=== PATIENT | male | born 1985 | race Caucasian/White ===

== ENCOUNTER 2017-04-01 17:32 | Emergency (ER) | payer OTHER ==
[~2017-04-01] VITALS: Ht 180.3 cm; Wt 72.0 kg
[2017-04-01 17:35] VITALS: TEMP 36.8; Ht 180.3 cm; Wt 72.0 kg
--- NOTE | 2017-04-01 18:52 | DIAGNOSTIC IMAGING REPORT ---
THORACIC SPINE 3 VIEWS ROUTINE HISTORY: Pain left shoulder/upper back pain COMPARISON: None. FINDINGS: There is no fracture. No subluxation. Disc spaces are preserved. IMPRESSION: No fracture or subluxation within the thoracic spine. The above report was generated using voice recognition software. It may contain grammatical, syntax or spelling errors. Electronically signed by: Yoni Damico M.D. 04/01/2017 6:51 PM Dictated Date/Time: 04/01/2017 6:51 PM
--- NOTE | 2017-04-01 18:53 | DIAGNOSTIC IMAGING REPORT ---
LEFT SHOULDER MIN 2 VIEWS ROUTINE CLINICAL HISTORY: left shoulder pain, no injury pain COMPARISON: None. DISCUSSION: The bones and joint spaces appear intact. There is no evidence of fracture, dislocation or bony disease. There is no evidence for soft tissue swelling. IMPRESSION: Negative study. The above report was generated using voice recognition software. It may contain grammatical, syntax or spelling errors. Electronically signed by: Yoni Damico M.D. 04/01/2017 6:52 PM Dictated Date/Time: 04/01/2017 6:52 PM
[2017-04-01] MEDS ORDERED: HYDROCODONE/ACETAMOPHEN 5/325MG TAB PO STA (19:13)
[2017-04-01] MEDS ORDERED: HYDR-5688 PO (20:14)
--- NOTE | 2017-04-01 20:14 | EMERGENCY ROOM VISIT NOTE ---
History First contact with patient: 17:57 Chief Complaint: SHOULDER PAIN Stated Complaint: PAIN IN LEFT SHOULDER,PAIN IN NECK,NUMBNESS History of Present Illness The patient is a 31 year old male who presents to the Emergency Room with complaints of left-sided shoulder and neck pain. The patient states that for the past 3 months, he has had ongoing pain in the left shoulder. The pain radiates up into his neck and down into his arm. 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 He reports pain has been worse over the past few days. Rates the discomfort a 9/10. He has been taking ibuprofen and Tylenol for the pain without relief. He states that the pain occasionally causes numbness that goes into his head. He denies any numbness or weakness of the arm. He denies any trauma to the neck or shoulder. He denies any history of shoulder problems. Review of Systems A complete 10 point review of systems was reviewed with the patient with pertinent positives and negatives as per history of present illness. All else were negative. Current/Historical Medications Scheduled PRN Hydrocodone/Acetaminophen 5MG/325MG ([place] 5MG/325MG), 1-2 TABLET PO Q4H PRN for Pain Allergies Coded Allergies: Codeine (Unverified Adverse Reaction, Intermediate, HIVES, 04/01/17) Physical Exam Vital Signs Date Time Temp Pulse Resp B/P (MAP) Pulse Ox O2 Delivery O2 Flow Rate FiO2 04/01/17 20:35 75 18 128/71 99 04/01/17 17:35 36.8 71 18 136/81 99 Room Air Physical Exam VITALS: Vitals are noted on the nurse's note and reviewed by myself. Vital signs stable. GENERAL: This is a 31-year-old male, in no acute distress, nondiaphoretic, well- developed well-nourished. HEENT: Normocephalic. PERRLA. EOMI. Mucous membranes moist. Neck is supple without nuchal rigidity. No tenderness of the cervical spinous processes. HEART: Regular rate and rhythm without murmurs gallops or rubs. LUNGS: Clear to auscultation bilaterally without wheezes, rales or rhonchi. MUSCULOSKELETAL: There is diffuse tenderness to palpation of the left thoracic paraspinous muscles into the left shoulder. Full range of motion of the left shoulder. Strength of bilateral upper extremities 5/5. NEURO: Patient was alert and oriented to person place and time. Normal sensation to light and sharp touch. Medical Decision & Procedures ER Provider Diagnostic Interpretation: LEFT SHOULDER MIN 2 VIEWS ROUTINE DISCUSSION: The bones and joint spaces appear intact. There is no evidence of fracture, dislocation or bony disease. There is no evidence for soft tissue swelling. IMPRESSION: Negative study. THORACIC SPINE 3 VIEWS ROUTINE FINDINGS: There is no fracture. No subluxation. Disc spaces are preserved. IMPRESSION: No fracture or subluxation within the thoracic spine. Medications Administered Medications (Trade) Dose Ordered Sig/Anika Route Start Time Stop Time Status Last Admin Dose Admin Acetaminophen/ Hydrocodone Bitart ([place] 5/325 Tab) 1 tab NOW STAT PO 04/01/17 19:13 04/01/17 19:14 DC 04/01/17 19:22 1 TAB Medical Decision Differential diagnosis includes herniated disc, thoracic muscle spasm, rotator cuff tendinitis, muscle strain, among others. The patient was evaluated as above. Exam is unremarkable. Normal strength and neurological findings. X-rays of the thoracic spine and left shoulder were obtained and read by radiology with no acute findings. The patient's physical exam is most consistent with a thoracic muscle spasm. He was given 1 tablet [place] and the emergency department and a small prescription. He was encouraged to follow-up with his primary care provider for further evaluation and treatment. He was instructed to return here for any numbness/weakness of the arm or other new/concerning symptoms. The patient verbalized understanding of my assessment and treatment plan and was discharged home in good condition. Blood pressure screening: Patient was found to have normal blood pressure on screening and does not require follow-up. Medication reconciliation: I attest that I have personally reviewed the patient 's current medication list. [place] Drug Monitoring [place] Search Results: patient reviewed within database, no issues identified Impression Primary Impression: Spasm of thoracic back muscle Departure Information Dispostion Home / Self-Care Condition GOOD Prescriptions Hydrocodone/Acetaminophen 5MG/325MG ([place] 5MG/325MG) Tab 1-2 TABLET PO Q4H Y for Pain, #12 TAB For Initial Treatment Prov: Tatyana Salmeron .BLANK 04/01/17 Referrals Vidya Smalls,C.R.N.P. (PCP) Patient Instructions My [facility] Additional Instructions You have been treated in the Emergency Department for Shoulder Pain. You have received pain medicine in the emergency department which impairs your ability to operate a vehicle. It is illegal for you to drive after receiving these medicines. You have been prescribed [place] to be used for pain control. This is a narcotic medication. You cannot drive or consume alcohol while on this medicine. This medicine should only be used for pain that cannot be controlled with over-the- counter pain medicines. For pain control, you can use the following [id number] medicines (if >12 yo): - Regular strength (325mg/tab) Tylenol (acetaminophen) 2 tabs every 4-6 hours as needed. Do not exceed 12 tablets in a 24 hour period. Avoid taking more than 4 grams (4000 mg) of Tylenol per day. This includes any other sources of acetaminophen you may take on a regular basis. - Regular strength (200 mg/tab) Advil (ibuprofen) 1-2 tabs every 4-6 hours as needed. Do not exceed a dose of 3200 mg per day. If this is a recent injury (<24 hrs), ice can be applied to the area of pain for the first 3 days to help decrease pain and inflammation. Follow-up with your primary care provider as scheduled. Return to the Emergency Department if your current symptoms worsen despite treatment course outlined above, or if you develop any of the following symptoms : intractable pain despite aforementioned treatment course or new onset of numbness or tingling of the arm.
[2017-04-01 20:35] VITALS: BP 128/71; PULSE 75; O2SAT 99
== END 2017-04-01 20:38 | disposition home or self-care (01) ==
LOC: C.EDB 17:38 → C.EDD 20:38
DX: M62.830 Muscle spasm of back (principal)

== ENCOUNTER 2017-04-15 08:01 | Emergency (ER) | payer OTHER ==
[~2017-04-15] VITALS: Ht 177.8 cm; Wt 64.4 kg
[~2017-04-15 08:01] MED LIST: HYDR-5688 PO
[2017-04-15 08:11] VITALS: TEMP 37.2; Ht 177.8 cm; Wt 64.4 kg
[2017-04-15] MEDS ORDERED: MoRPHine SULFATE 4 MG/ML 1 ML CARP\\VIAL IV STA (08:29)
[2017-04-15] MEDS ORDERED: SODIUM CHLORIDE 0.9% 1000ML 1,000 ML IV STA (08:29)
--- NOTE | 2017-04-15 08:37 | EMERGENCY ROOM VISIT NOTE ---
History First contact with patient: 08:14 Chief Complaint: NECK PAIN Stated Complaint: NECK PAIN, [place] X 2 DAYS, FEVER, DIZZY History of Present Illness The patient is a 32 year old male who presents to the Emergency Room with complaints of neck pain, headache and fever. The patient was seen here earlier this month with pain in the left shoulder. The patient states that he followed up with his family doctor and was prescribed naproxen and Flexeril. He is scheduled for physical therapy and to see a chiropractor. He developed neck pain and a severe headache yesterday. The patient stated he was having difficulty at work because his head and neck hurt so severely. He states that anytime he bent over he saw white spots. The patient states the pain is in the posterior neck and into the musculature of the left shoulder. He states that he woke up in the middle the night last night and was covered in sweat. He took his temperature and it was found to be 99.7F. He took 2 Tylenol and was able to go back to sleep. He states that this morning he has developed nausea and vomiting, the severe headache which she rates a 6/10 persists. Review of Systems A 10 system review of systems was completed with positives and pertinent negatives listed in the HPI. Past Medical/Surgical History Patient denies Social History Smoking Status: Current Every Day Smoker Marital Status: single Housing Status: lives with family Current/Historical Medications Scheduled Prednisone (Prednisone), 0 PO DAILY Scheduled PRN Oxycodone Ir (Roxicodone Ir), 1-2 TAB PO Q4H PRN for Pain Physical Exam Vital Signs Date Time Temp Pulse Resp B/P (MAP) Pulse Ox O2 Delivery O2 Flow Rate FiO2 04/15/17 10:29 71 16 123/69 98 Room Air 04/15/17 09:41 73 16 116/75 99 Room Air 04/15/17 08:11 37.2 85 18 126/93 98 Room Air Physical Exam VITALS: Vitals are noted on the nurse's note and reviewed by myself. Vital signs stable. The patient is afebrile. GENERAL: This is a 32-year-old male, in no acute distress, nondiaphoretic, well- developed well-nourished. SKIN: The skin was without rashes, erythema, edema, or bruising. There is no tenting of the skin. Capillary reflex less than 2 seconds. HEAD: Normocephalic atraumatic. EARS: External auditory canals clear, tympanic membranes pearly marroquin without erythema or effusion bilaterally. EYES: Pupils equal round and reactive to light and accommodation. Conjunctivae without injection, sclerae without icterus. Extraocular movements intact. NOSE: Patent, turbinates without inflammation or discharge. MOUTH: Mucous membranes moist. Tonsils are not enlarged. Pharynx without erythema or exudate. Uvula midline. Airway patent. Tongue does not deviate. NECK: The patient has pain with flexion, extension and rotation of the neck. He complains of pain primarily over the left trapezius with flexion of the neck. The patient does have some stiffness with movement. Cervical spine is tender diffusely. There is tenderness over the left trapezius muscle. No JVD. HEART: Regular rate and rhythm without murmurs gallops or rubs. LUNGS: Clear to auscultation bilaterally without wheezes, rales or rhonchi. No retractions or accessory muscle use. ABDOMEN: Positive bowel sounds x 4. Soft, nontender, without masses or organomegaly. MUSCULOSKELETAL: No muscle atrophy, erythema, or edema noted. Full range of motion without joint tenderness in all extremities. There is tenderness to palpation over the left trapezius muscle. Normal gait. Strength 5/5 throughout. NEURO: Patient was alert and oriented to person place and time. No focal neurological deficits. Medical Decision & Procedures ER Provider Diagnostic Interpretation: CERVICAL SPINE W/O CT DOSE: 490.50 mGycm CLINICAL HISTORY: 32 years-old Male with neck pain. Acute headache with neck pain, fever and dizziness for 2 days. No reported trauma. COMPARISON: CT head of same day. TECHNIQUE: Multiple axial CT images of the cervical spine were obtained without contrast. A dose lowering technique was utilized adhering to the principles of ALARA. FINDINGS: Vertebral body heights and alignment are normal. No fracture or subluxation is identified. There is mild intervertebral disc space narrowing at C5-C6 along with small posterior disc bulge. Mild multilevel uncovertebral spurring is noted. No significant central canal or neural foraminal stenosis is identified. The cervical soft tissues appear unremarkable. The visualized lung apices appear clear. IMPRESSION: 1. No acute cervical spine fracture or subluxation. 2. Mild intervertebral disc space narrowing, uncovertebral spurring and small posterior disc bulge at C5-C6. CT HEAD WITHOUT CONTRAST (CT) CLINICAL HISTORY: headache, fever COMPARISON STUDY: No previous studies for comparison. TECHNIQUE: Axial CT of the brain is performed from the vertex to the skull base. IV contrast was not administered for this examination. A dose lowering technique was utilized adhering to the principles of ALARA. CT DOSE: 679.75 mGycm FINDINGS: No intra or extra-axial mass lesions are visualized. There is no CT evidence of acute cortical infarction. There is no evidence of midline shift. There is no acute hemorrhage. No calvarial fractures are visualized. There is no evidence of pathologic ventricular dilatation. There is no evidence of acute sinusitis IMPRESSION: Normal noncontrast head CT. Laboratory Results 04/15/17 08:40 Red Blood Count 5.33, Mean Corpuscular Volume 92.3, Mean Corpuscular Hemoglobin 29.8, Mean Corpuscular Hemoglobin Concent 32.3, Mean Platelet Volume 10.3, Neutrophils (%) (Auto) 68.7, Lymphocytes (%) (Auto) 14.8, Monocytes (%) (Auto) 15.8, Eosinophils (%) (Auto) 0.3, Basophils (%) (Auto) 0.1, Neutrophils # (Auto ) 5.46, Lymphocytes # (Auto) 1.17, Monocytes # (Auto) 1.25, Eosinophils # (Auto ) 0.02, Basophils # (Auto) 0.01 04/15/17 08:40 Test 04/15/17 08:40 White Blood Count 7.93 K/uL (4.8-10.8) Red Blood Count 5.33 M/uL (4.7-6.1) Hemoglobin 15.9 g/dL (14.0-18.0) Hematocrit 49.2 % (42-52) Mean Corpuscular Volume 92.3 fL (80-100) Mean Corpuscular Hemoglobin 29.8 pg (25-34) Mean Corpuscular Hemoglobin Concent 32.3 g/dl (32-36) Platelet Count 266 K/uL (130-400) Mean Platelet Volume 10.3 fL (7.4-10.4) Neutrophils (%) (Auto) 68.7 % Lymphocytes (%) (Auto) 14.8 % Monocytes (%) (Auto) 15.8 % Eosinophils (%) (Auto) 0.3 % Basophils (%) (Auto) 0.1 % Neutrophils # (Auto) 5.46 K/uL (1.4-6.5) Lymphocytes # (Auto) 1.17 K/uL (1.2-3.4) Monocytes # (Auto) 1.25 K/uL (0.11-0.59) Eosinophils # (Auto) 0.02 K/uL (0-0.5) Basophils # (Auto) 0.01 K/uL (0-0.2) RDW Standard Deviation 40.4 fL (36.4-46.3) RDW Coefficient of Variation 12.0 % (11.5-14.5) Immature Granulocyte % (Auto) 0.3 % Immature Granulocyte # (Auto) 0.02 K/uL (0.00-0.02) Anion Gap 8.0 mmol/L (3-11) Est Creatinine Clear Calc Drug Dose 110.0 ml/min Estimated GFR () 131.4 Estimated GFR (Non- 113.4 BUN/Creatinine Ratio 18.4 (10-20) Lactic Acid Level 0.9 mmol/L (0.4-2.0) Calcium Level 9.4 mg/dl (8.5-10.1) Total Bilirubin 0.3 mg/dl (0.2-1) Aspartate Amino Transf (AST/SGOT) 69 U/L (15-37) Alanine Aminotransferase (ALT/SGPT) 82 U/L (12-78) Alkaline Phosphatase 73 U/L (45-117) Total Protein 7.8 gm/dl (6.4-8.2) Albumin 4.0 gm/dl (3.4-5.0) Globulin 3.8 gm/dl (2.5-4.0) Albumin/Globulin Ratio 1.1 (0.9-2) Medications Administered Medications (Trade) Dose Ordered Sig/Anika Route Start Time Stop Time Status Last Admin Dose Admin Sodium Chloride 1,000 ml @ 999 mls/hr Q1H1M STAT IV 04/15/17 08:29 04/15/17 09:29 DC 04/15/17 08:52 999 MLS/HR Morphine Sulfate (MoRPHine SULFATE INJ) 4 mg NOW STAT IV 04/15/17 08:29 04/15/17 08:31 DC 04/15/17 08:52 4 MG Hydromorphone HCl (Dilaudid Inj) 1 mg NOW STAT IV 04/15/17 09:42 04/15/17 09:43 DC 04/15/17 10:11 1 MG ED Course The patient was seen and examined. Previous visits were reviewed. The patient was afebrile. He does not have a leukocytosis. He does not have any significant electrolyte abnormalities. AST and ALT were mildly elevated at 69 and 82, respectively. The patient reports a history of hepatitis C. 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 The patient states that was in his teens and he has been clean for a number of years. Lactic acid was not elevated at 0.9. Blood cultures are pending. CT scan of the brain did not reveal any acute abnormality CT scan of the cervical spine reveals disc bulge at C5-C6 The patient was hydrated with normal saline solution He was given 4 mg IV morphine with only minimal improvement in his pain He was then given 1 mg IV Dilaudid with marked improvement in his symptoms The patient presents emergency department with severe headache, neck pain, reported fever, neck stiffness. He states that he almost passed out because of the headache and he was seeing white spots when he was bending over. There is no evidence for intracranial bleeding or skull fracture. There is suggestion of disc bulge at C5-C6 on cervical spine CT. I suspect that this pain is radicular from the disc bulge. However, I could not completely rule out meningitis at this time. I discussed the risks, benefits and alternatives of lumbar puncture with the patient. He refuses a lumbar puncture. He states that he will return to the ER with any worsening symptoms. He should follow-up with orthopedic spine for further evaluation and management. He'll be given a prescription for pain medication and prednisone. He should return with any fevers, worsening symptoms The case was discussed with Dr. Cerda who agrees with the assessment and treatment plan Medical Decision DIFFERENTIAL DIAGNOSIS: Cervical strain, cervical spondylosis, cervical discogenic pain, thoracic outlet syndrome, cervical radiculopathy, herpes zoster , cervical disc herniation, bulging, meningitis, head or neck trauma, cerebrovascular disorders, intracranial lesions, infection,transient ischemic attack (TIA), CVA, seizure, syncope, intracranial mass, intracranial bleeding and vestibular disorders, among others [place] Drug [place] Search Results: patient reviewed within database, no issues identified Medication Reconcilliation Current Medication List: was personally reviewed by me Blood Pressure Screening Patient's blood pressure: Normal blood pressure Blood pressure disposition: Did not require urgent referral Impression Primary Impression: Bulging of cervical intervertebral disc Departure Information Dispostion Home / Self-Care Condition GOOD Prescriptions Prednisone (Prednisone) 20 Mg Tab 0 PO DAILY, #18 TAB 3 DAILY FOR 3 DAYS, THEN 2 DAILY FOR 3 DAYS, THEN 1 DAILY FOR 3 DAYS. Prov: Lisa Weathers PA-C 04/15/17 Oxycodone Ir (Roxicodone Ir) 5 Mg Tab 1-2 TAB PO Q4H Y for Pain, #30 TAB For Initial Treatment Prov: Lisa Weathers PA-C 04/15/17 Referrals Vidya Smalls,C.R.N.P. (PCP) Dawit Gold, DO Forms HOME CARE DOCUMENTATION FORM, IMPORTANT VISIT INFORMATION, WORK / SCHOOL INSTRUCTIONS Patient Instructions Cervical Spine Disk Probs, [facility] Additional Instructions Motrin 600 mg every 6-8 hours or moderate pain Oxy IR 1-2 tablets every 4-6 hrs as needed for worse pain. No driving or alcohol use with Oxy IR. Prednisone as prescribed, until finished Follow up with your family doctor or orthopedic spine surgery for further evaluation and management of the neck and arm pain. Although your pain is likely secondary to the bulging disc in your neck, we have not completely ruled out meningitis without a spinal tap. If the headache and neck pain persist, fevers return or worsen, return to the emergency department immediately for further evaluation and management. Work Instructions Return To Work: 2 days
[2017-04-15 09:09] LABS: BASO % 0.1 %; BASO ABS # 0.01 K/uL (0-0.2); COMPLETE YES; EOS % 0.3 %; HEMATOCRIT 49.2 % (42-52); IG% 0.3 %; LYMPH % 14.8 %; LYMPH ABS # 1.17 K/uL (1.2-3.4); MEAN CELL VOLUME 92.3 fL (80-100); MEAN CORPUSCULAR HEMOGLOBIN 29.8 pg (25-34); MEAN CORPUSCULAR HGB CONC 32.3 g/dl (32-36); MEAN PLATELET VOLUME 10.3 fL (7.4-10.4); MONO % 15.8 %; NEUT % 68.7 %; PLATELET COUNT 266 K/uL (130-400); RED BLOOD COUNT 5.33 M/uL (4.7-6.1); WHITE BLOOD COUNT 7.93 K/uL (4.8-10.8)
[2017-04-15 09:27] LABS: BUN/CREATININE RATIO 18.4 (10-20); CALCIUM 9.4 mg/dl (8.5-10.1); CREATININE 0.87 mg/dl (0.60-1.40); POTASSIUM 3.8 mmol/L (3.5-5.1)
[2017-04-15 09:30] LABS: ALB/GLOB RATIO 1.1 (0.9-2)
[2017-04-15] MEDS ORDERED: HYDROmorphone INJ 1 MG/ML SYR IV STA (09:42)
--- NOTE | 2017-04-15 09:43 | DIAGNOSTIC IMAGING REPORT ---
CT HEAD WITHOUT CONTRAST (CT) CLINICAL HISTORY: headache, fever COMPARISON STUDY: No previous studies for comparison. TECHNIQUE: Axial CT of the brain is performed from the vertex to the skull base. IV contrast was not administered for this examination. A dose lowering technique was utilized adhering to the principles of ALARA. CT DOSE: 679.75 mGycm FINDINGS: No intra or extra-axial mass lesions are visualized. There is no CT evidence of acute cortical infarction. There is no evidence of midline shift. There is no acute hemorrhage. No calvarial fractures are visualized. There is no evidence of pathologic ventricular dilatation. There is no evidence of acute sinusitis IMPRESSION: Normal noncontrast head CT. Electronically signed by: Alberto Joyce M.D. 04/15/2017 9:42 AM Dictated Date/Time: 04/15/2017 9:35 AM
--- NOTE | 2017-04-15 09:43 | DIAGNOSTIC IMAGING REPORT ---
CERVICAL SPINE W/O CT DOSE: 490.50 mGycm CLINICAL HISTORY: 32 years-old Male with neck pain. Acute headache with neck pain, fever and dizziness for 2 days. No reported trauma. COMPARISON: CT head of same day. TECHNIQUE: Multiple axial CT images of the cervical spine were obtained without contrast. A dose lowering technique was utilized adhering to the principles of ALARA. FINDINGS: Vertebral body heights and alignment are normal. No fracture or subluxation is identified. There is mild intervertebral disc space narrowing at C5-C6 along with small posterior disc bulge. Mild multilevel uncovertebral spurring is noted. No significant central canal or neural foraminal stenosis is identified. The cervical soft tissues appear unremarkable. The visualized lung apices appear clear. IMPRESSION: 1. No acute cervical spine fracture or subluxation. 2. Mild intervertebral disc space narrowing, uncovertebral spurring and small posterior disc bulge at C5-C6. The above report was generated using voice recognition software. It may contain grammatical, syntax or spelling errors. Electronically signed by: Main Ocasio M.D. 04/15/2017 9:41 AM Dictated Date/Time: 04/15/2017 9:37 AM
[2017-04-15] MEDS ORDERED: OXYC1TAB3 PO (10:02)
[2017-04-15] MEDS ORDERED: PRED20TA PO (10:02)
[2017-04-15 10:29] VITALS: BP 123/69; PULSE 71; O2SAT 98
== END 2017-04-15 10:56 | disposition home or self-care (01) ==
LOC: C.EDB 08:03
DX: M50.222 Other cervical disc displacement at C5-C6 level (principal); F17.200 Nicotine dependence, unspecified, uncomplicated